=== PATIENT | female | born 1930 | race Caucasian/White ===

== ENCOUNTER 2016-08-31 09:44 | Emergency (ER) | payer MEDICARE ==
[~2016-08-31] VITALS: Ht 160 cm; Wt 63.5 kg
[2016-08-31] MEDS ORDERED: ASPI81CH PO (10:07)
[2016-08-31] MEDS ORDERED: LISI-542 PO (10:07)
[2016-08-31] MEDS ORDERED: ATOR40TA PO (10:07)
[2016-08-31] MEDS ORDERED: LEVO150T7 PO (10:07)
[2016-08-31] MEDS ORDERED: LASI20TA PO (10:07)
[2016-08-31] MEDS ORDERED: BYST5TAB2 PO (10:07)
[2016-08-31 11:06] LABS: BASO % 0.6 % (0.0-1.0); EOS # 0.2 K/mm3 (0.0-0.50); EOS % 4.5 % (0.0-3.0); LARGE UNSTAINED CELL # 0.1 K/mm3 (0.0-0.4); LARGE UNSTAINED CELL % 1.6 % (0.0-4.0); LYMPH # 1.1 K/mm3 (1.5-4.5); LYMPH % 18.4 % (24.0-44.0); MEAN CORPUSCULAR HEMOGLOBIN 29.8 pg (27.0-33.0); MEAN CORPUSCULAR HGB CONC 33.1 g/dl (32.0-36.5); MEAN CORPUSCULAR VOLUME 89.9 fl (80.0-96.0); MONO # 0.4 K/mm3 (0.0-0.8); MONO % 7.4 % (0.0-5.0); NEUTROPHILS # 3.8 K/mm3 (1.8-7.7); NEUTROPHILS % 67.5 % (36.0-66.0); PLATELET COUNT, AUTOMATED 178 k/mm3 (150-450); RED CELL DISTRIBUTION WIDTH 13.2 % (11.5-14.5); WHITE BLOOD COUNT 5.6 K/mm3 (4.0-10.0)
--- NOTE | 2016-08-31 11:34 | REP ---
PELVIS AND BILATERAL HIPS: AP view of the pelvis and AP and frogleg views of each hip are performed. 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 The visualized osseous structures demonstrate no evidence of acute fracture. There are degenerative changes of the lower lumbar spine and sacroiliac joints. Multiple metallic clips and sutures are seen in the pelvis as well as phleboliths. IMPRESSION: No acute fracture or dislocation. Signed by Dayne Amaral MD 08/31/2016 07:46 P
--- NOTE | 2016-08-31 11:36 | REP ---
BILATERAL KNEES: Five views bilateral knees performed. There is no acute fracture or dislocation. Total knee arthroplasty is seen on the right with no abnormal lucency in the adjacent bone. There is moderate diffuse joint space narrowing of the left knee joint with spurring and subchondral sclerosis as well as chondrocalcinosis. Large spurs are seen of the anterior superior aspect of the femoral condyles and of the inferior patella. There are vascular calcifications posteriorly. IMPRESSION: Right total knee arthroplasty. Diffuse degenerative changes left knee. No acute fracture or dislocation. Signed by Dayne Amaral MD 08/31/2016 07:46 P
[2016-08-31] MEDS ORDERED: ACETAMINOPHEN TAB 650MG DOSE (2X325MG) PO ONE (12:00)
[2016-08-31 12:20] VITALS: BP 115/68
[2016-08-31] MEDS ORDERED: TYLE325T5 PO (12:30)
== END 2016-08-31 12:41 | disposition home or self-care (01) ==
LOC: M ED 10:34
DX: M25.551 Pain in right hip (principal); M17.11 Unilateral primary osteoarthritis, right knee; Z87.891 Personal history of nicotine dependence; Z88.5 Allergy status to narcotic agent; Z91.040 Latex allergy status; Z79.899 Other long term (current) drug therapy; Z96.9 Presence of functional implant, unspecified

== ENCOUNTER 2017-05-20 14:00 | Emergency (ER) | payer MEDICARE ==
[2017-05-20] MEDS ORDERED: ALTEPLASE 100MG INJ (J2997) IV ×2 (14:30→14:45)
[2017-05-20 14:44] LABS: BEDSIDE GLUCOSE 90 MG/DL (83-110)
[2017-05-20 14:45] LABS: BASO % 0.6 % (0.0-1.0); EOS # 0.1 10^3/uL (0.0-0.50); EOS % 1.8 % (0.0-3.0); HEMATOCRIT 42.7 % (36.0-47.0); IMMATURE GRANULOCYTE % 0.2 % (0-0); LYMPH # 0.9 10^3/uL (1.5-4.5); LYMPH % 17.2 % (24.0-44.0); MEAN CORPUSCULAR HEMOGLOBIN 29.9 pg (27.0-33.0); MEAN CORPUSCULAR HGB CONC 32.8 g/dl (32.0-36.5); MONO # 0.4 10^3/uL (0.0-0.8); MONO % 6.8 % (0.0-5.0); NEUTROPHILS % 73.4 % (36.0-66.0); PLATELET COUNT, AUTOMATED 186 10^3/uL (150-450); RED BLOOD COUNT 4.69 10^6/uL (4.00-5.40); RED CELL DISTRIBUTION WIDTH 13.4 % (11.5-14.5); WHITE BLOOD COUNT 5.4 10^3/uL (4.0-10.0)
[2017-05-20 14:53] LABS: INR 1.02; PROTHROMBIN TIME 13.5 SECONDS (12.4-14.5)
[2017-05-20 14:54] LABS: PARTIAL THROMBOPLASTIN TIME 30.2 SECONDS (26.8-37.9)
[2017-05-20 14:57] LABS: ANION GAP 4 MEQ/L (8-16); BLOOD UREA NITROGEN 18 MG/DL (7-18); CALCIUM LEVEL 8.8 MG/DL (8.8-10.2); CARBON DIOXIDE LEVEL 33 MEQ/L (21-32); CHLORIDE LEVEL 106 MEQ/L (98-107); CK-MB VALUE MASS 1.7 NG/ML (0.0-3.6); CPK CREATINE PHOSPHOKINASE 75 U/L (26-192); CREATININE FOR GFR 0.81 MG/DL (0.55-1.30); GLOMERULAR FILTRATION RATE > 60.0 (>32); GLUCOSE, FASTING 92 MG/DL (70-100); MB/CK RELATIVE INDEX 2.26 (< OR =4); POTASSIUM SERUM 3.7 MEQ/L (3.5-5.1); SODIUM LEVEL 143 MEQ/L (136-145); TROPONIN I < 0.02 NG/ML (< 0.10)
== END 2017-05-20 15:00 | disposition short-term general hospital (02) ==
LOC: M ED 14:00
DX: I63.9 Cerebral infarction, unspecified (principal); R00.1 Bradycardia, unspecified; I51.9 Heart disease, unspecified; I10 Essential (primary) hypertension; E03.9 Hypothyroidism, unspecified; Z86.73 Personal history of transient ischemic attack (TIA), and cerebral infarction without residual deficits; Z85.038 Personal history of other malignant neoplasm of large intestine; Z86.79 Personal history of other diseases of the circulatory system; Z87.891 Personal history of nicotine dependence; Z79.82 Long term (current) use of aspirin; Z79.899 Other long term (current) drug therapy; Z88.5 Allergy status to narcotic agent; Z91.89 Other specified personal risk factors, not elsewhere classified
CPT/HCPCS: 71045

== ENCOUNTER 2017-05-23 18:04 | Inpatient (IN) | payer MEDICARE ==
[2017-05-23] MEDS: FUROSEMIDE 20 MG TAB PO (17:00)
[~2017-05-23 18:04] MED LIST: BISACODYL 5 MG TAB PO; FLEET ENEMA PR
[2017-05-23] MEDS: ATORVASTATIN 20 MG TAB PO (20:45)
[2017-05-23 23:43] LABS: APPEARANCE, URINE HAZY (CLEAR); BACTERIA, URINE AUTO NEGATIVE (NEGATIVE); BILIRUBIN, URINE AUTO NEGATIVE (NEGATIVE); BLOOD, URINE BLOOD 3+ (NEGATIVE); COLOR, URINE YELLOW (YELLOW); GLUCOSE, URINE (UA) AUTO NEGATIVE (NEGATIVE); KETONE, URINE AUTO NEGATIVE (NEGATIVE); LEUKOCYTE ESTERASE, URINE AUTO 3+ (NEGATIVE); NITRITE, URINE AUTO NEGATIVE (NEGATIVE); PROTEIN, URINE AUTO NEGATIVE (NEGATIVE); RBC, URINE AUTO TNTC /HPF (0-3); SPECIFIC GRAVITY URINE AUTO 1.016 (1.002-1.035); SQUAMOUS EPITHELIAL CELL UR AU 0 /HPF (0-6); WBC, URINE AUTO 21 /HPF (0-3)
[2017-05-24] MEDS: LEVOTHYROXINE 125MCG TABLET (0.125MG) PO (06:35)
[2017-05-24] MEDS: ACETAMINOPHEN TAB 650MG DOSE (2X325MG) PO (06:36)
[2017-05-24 06:59] LABS: BASO % 0.5 % (0.0-1.0); EOS # 0.2 10^3/uL (0.0-0.50); EOS % 2.6 % (0.0-3.0); HEMATOCRIT 38.4 % (36.0-47.0); IMMATURE GRANULOCYTE % 0.2 % (0-0); LYMPH # 1.2 10^3/uL (1.5-4.5); LYMPH % 20.2 % (24.0-44.0); MEAN CORPUSCULAR HEMOGLOBIN 30.4 pg (27.0-33.0); MEAN CORPUSCULAR HGB CONC 33.9 g/dl (32.0-36.5); MEAN CORPUSCULAR VOLUME 89.7 fl (80.0-96.0); MONO # 0.6 10^3/uL (0.0-0.8); MONO % 9.8 % (0.0-5.0); NEUTROPHILS # 4.1 10^3/uL (1.8-7.7); NEUTROPHILS % 66.7 % (36.0-66.0); PLATELET COUNT, AUTOMATED 147 10^3/uL (150-450); RED BLOOD COUNT 4.28 10^6/uL (4.00-5.40); RED CELL DISTRIBUTION WIDTH 13.1 % (11.5-14.5); WHITE BLOOD COUNT 6.1 10^3/uL (4.0-10.0)
[2017-05-24 07:29] LABS: ALBUMIN 3.1 GM/DL (3.2-5.2); ALBUMIN/GLOBULIN RATIO 0.91 (1.00-1.93); ALKALINE PHOSPHATASE 70 U/L (45-117); ALT/SGPT 32 U/L (12-78); ANION GAP 6 MEQ/L (8-16); AST/SGOT 31 U/L (7-37); BILIRUBIN,TOTAL 1.6 MG/DL (0.2-1.0); BLOOD UREA NITROGEN 17 MG/DL (7-18); CALCIUM LEVEL 8.3 MG/DL (8.8-10.2); CARBON DIOXIDE LEVEL 32 MEQ/L (21-32); CHLORIDE LEVEL 101 MEQ/L (98-107); CREATININE FOR GFR 0.75 MG/DL (0.55-1.30); FREE THYROXINE INDEX 3.6 % (1.3-4.8); GLOMERULAR FILTRATION RATE > 60.0 (>32); GLUCOSE, FASTING 93 MG/DL (70-100); POTASSIUM SERUM 3.4 MEQ/L (3.5-5.1); SODIUM LEVEL 139 MEQ/L (136-145); T UPTAKE 34 % (30-39); THYROXINE (T4) 10.6 UG/DL (4.5-12.0); TOTAL PROTEIN 6.5 GM/DL (6.4-8.2)
[2017-05-24] MEDS: ASPIRIN 81 MG CHEW TABLET PO (09:32)
[2017-05-24] MEDS: FUROSEMIDE 20 MG TAB PO ×2 (09:32→18:34)
[2017-05-24] MEDS: NEBIVOLOL 5 MG TAB (BYSTOLIC) PO (09:33)
[2017-05-24] MEDS: CYANOCOBALAMIN 500 MCG TAB PO (09:33)
[2017-05-24] MEDS: LISINOPRIL 5 MG TAB PO (09:33)
[2017-05-24] MEDS: PANTOPRAZOLE 40MG TAB (PROTONIX) PO (09:33)
[2017-05-24] MEDS: POTASSIUM CHLORIDE 10 MEQ SR TABLET PO (13:51)
[2017-05-24] MEDS: ATORVASTATIN 20 MG TAB PO (20:45)
[2017-05-25] MEDS: ACETAMINOPHEN TAB 650MG DOSE (2X325MG) PO ×2 (06:14→21:55)
[2017-05-25] MEDS: LEVOTHYROXINE 125MCG TABLET (0.125MG) PO (06:14)
[2017-05-25 07:32] LABS: ANION GAP 6 MEQ/L (8-16); BLOOD UREA NITROGEN 25 MG/DL (7-18); CALCIUM LEVEL 8.1 MG/DL (8.8-10.2); CARBON DIOXIDE LEVEL 31 MEQ/L (21-32); CHLORIDE LEVEL 104 MEQ/L (98-107); CREATININE FOR GFR 0.86 MG/DL (0.55-1.30); GLOMERULAR FILTRATION RATE > 60.0 (>32); GLUCOSE, FASTING 107 MG/DL (70-100); POTASSIUM SERUM 3.6 MEQ/L (3.5-5.1); SODIUM LEVEL 141 MEQ/L (136-145)
[2017-05-25] MEDS: NEBIVOLOL 5 MG TAB (BYSTOLIC) PO (08:30)
[2017-05-25] MEDS: LISINOPRIL 5 MG TAB PO (08:30)
[2017-05-25] MEDS: CYANOCOBALAMIN 500 MCG TAB PO (08:30)
[2017-05-25] MEDS: FUROSEMIDE 20 MG TAB PO ×2 (08:30→17:25)
[2017-05-25] MEDS: PANTOPRAZOLE 40MG TAB (PROTONIX) PO (08:30)
[2017-05-25] MEDS: ASPIRIN 81 MG CHEW TABLET PO (08:30)
[2017-05-25] MEDS: ATORVASTATIN 20 MG TAB PO (21:55)
[2017-05-26] MEDS: LEVOTHYROXINE 125MCG TABLET (0.125MG) PO (07:02)
[2017-05-26] MEDS: FUROSEMIDE 20 MG TAB PO ×2 (08:31→17:14)
[2017-05-26] MEDS: CYANOCOBALAMIN 500 MCG TAB PO (08:31)
[2017-05-26] MEDS: PANTOPRAZOLE 40MG TAB (PROTONIX) PO (08:31)
[2017-05-26] MEDS: NEBIVOLOL 5 MG TAB (BYSTOLIC) PO (08:31)
[2017-05-26] MEDS: LISINOPRIL 5 MG TAB PO (08:31)
[2017-05-26] MEDS: ASPIRIN 81 MG CHEW TABLET PO (08:31)
[2017-05-26 08:52] LABS: HEMATOCRIT 41.9 % (36.0-47.0); HEMOGLOBIN 13.7 g/dl (12.0-16.0); MEAN CORPUSCULAR HEMOGLOBIN 29.8 pg (27.0-33.0); MEAN CORPUSCULAR HGB CONC 32.7 g/dl (32.0-36.5); MEAN CORPUSCULAR VOLUME 91.3 fl (80.0-96.0); PLATELET COUNT, AUTOMATED 207 10^3/uL (150-450); RED BLOOD COUNT 4.59 10^6/uL (4.00-5.40); RED CELL DISTRIBUTION WIDTH 13.2 % (11.5-14.5); WHITE BLOOD COUNT 5.7 10^3/uL (4.0-10.0)
[2017-05-26 09:37] LABS: ANION GAP 5 MEQ/L (8-16); BLOOD UREA NITROGEN 24 MG/DL (7-18); CALCIUM LEVEL 8.8 MG/DL (8.8-10.2); CARBON DIOXIDE LEVEL 33 MEQ/L (21-32); CHLORIDE LEVEL 104 MEQ/L (98-107); CREATININE FOR GFR 0.95 MG/DL (0.55-1.30); GLOMERULAR FILTRATION RATE 59.2 (>32); GLUCOSE, FASTING 95 MG/DL (70-100); POTASSIUM SERUM 3.7 MEQ/L (3.5-5.1); SODIUM LEVEL 142 MEQ/L (136-145)
[2017-05-26] MEDS: ATORVASTATIN 20 MG TAB PO (20:25)
[2017-05-27] MEDS: LEVOTHYROXINE 125MCG TABLET (0.125MG) PO (05:26)
[2017-05-27] MEDS: FUROSEMIDE 20 MG TAB PO ×2 (08:09→16:50)
[2017-05-27] MEDS: NEBIVOLOL 5 MG TAB (BYSTOLIC) PO (08:09)
[2017-05-27] MEDS: LISINOPRIL 5 MG TAB PO (08:09)
[2017-05-27] MEDS: ASPIRIN 81 MG CHEW TABLET PO (08:09)
[2017-05-27] MEDS: PANTOPRAZOLE 40MG TAB (PROTONIX) PO (08:10)
[2017-05-27] MEDS: CYANOCOBALAMIN 500 MCG TAB PO (08:10)
[2017-05-27] MEDS: ACETAMINOPHEN TAB 650MG DOSE (2X325MG) PO ×2 (12:47→19:40)
[2017-05-27] MEDS: ANALGESIC BALM CRM 120 GM TOP ×3 (13:00→19:41)
[2017-05-27] MEDS: ATORVASTATIN 20 MG TAB PO (19:40)
[2017-05-28] MEDS: LEVOTHYROXINE 125MCG TABLET (0.125MG) PO (05:43)
[2017-05-28] MEDS: ASPIRIN 81 MG CHEW TABLET PO (09:09)
[2017-05-28] MEDS: CYANOCOBALAMIN 500 MCG TAB PO (09:10)
[2017-05-28] MEDS: FUROSEMIDE 20 MG TAB PO ×2 (09:10→16:37)
[2017-05-28] MEDS: PANTOPRAZOLE 40MG TAB (PROTONIX) PO (09:10)
[2017-05-28] MEDS: LISINOPRIL 5 MG TAB PO (09:10)
[2017-05-28] MEDS: NEBIVOLOL 5 MG TAB (BYSTOLIC) PO (09:10)
[2017-05-28] MEDS: ANALGESIC BALM CRM 120 GM TOP ×4 (09:10→20:03)
[2017-05-28] MEDS: ATORVASTATIN 20 MG TAB PO (20:03)
[2017-05-28] MEDS: ACETAMINOPHEN TAB 650MG DOSE (2X325MG) PO (20:04)
[2017-05-29] MEDS: LEVOTHYROXINE 125MCG TABLET (0.125MG) PO (05:36)
[2017-05-29] MEDS: ASPIRIN 81 MG CHEW TABLET PO (08:47)
[2017-05-29] MEDS: FUROSEMIDE 20 MG TAB PO ×2 (08:47→17:05)
[2017-05-29] MEDS: PANTOPRAZOLE 40MG TAB (PROTONIX) PO (08:47)
[2017-05-29] MEDS: LISINOPRIL 5 MG TAB PO (08:48)
[2017-05-29] MEDS: ANALGESIC BALM CRM 120 GM TOP ×4 (08:48→20:55)
[2017-05-29] MEDS: CYANOCOBALAMIN 500 MCG TAB PO (08:48)
[2017-05-29] MEDS: NEBIVOLOL 5 MG TAB (BYSTOLIC) PO (08:48)
[2017-05-29] MEDS: ACETAMINOPHEN TAB 650MG DOSE (2X325MG) PO (10:47)
[2017-05-29] MEDS: ATORVASTATIN 20 MG TAB PO (20:55)
[2017-05-30] MEDS: LEVOTHYROXINE 125MCG TABLET (0.125MG) PO (05:59)
[2017-05-30] MEDS: PANTOPRAZOLE 40MG TAB (PROTONIX) PO (08:48)
[2017-05-30] MEDS: LISINOPRIL 5 MG TAB PO (08:48)
[2017-05-30] MEDS: NEBIVOLOL 5 MG TAB (BYSTOLIC) PO (08:48)
[2017-05-30] MEDS: CYANOCOBALAMIN 500 MCG TAB PO (08:48)
[2017-05-30] MEDS: FUROSEMIDE 20 MG TAB PO (08:48)
[2017-05-30] MEDS: ASPIRIN 81 MG CHEW TABLET PO (08:48)
[2017-05-30] MEDS: ANALGESIC BALM CRM 120 GM TOP (08:49)
== END 2017-05-30 10:45 | DRG 57 ==
LOC: M PM&R 18:04
DX: I69.354 Hemiplegia and hemiparesis following cerebral infarction affecting left non-dominant side (principal); I50.32 Chronic diastolic (congestive) heart failure; I69.393 Ataxia following cerebral infarction; I11.0 Hypertensive heart disease with heart failure; E78.5 Hyperlipidemia, unspecified; I69.398 Other sequelae of cerebral infarction; R29.818 Other symptoms and signs involving the nervous system; E03.9 Hypothyroidism, unspecified; I25.10 Atherosclerotic heart disease of native coronary artery without angina pectoris; F03.90 Unspecified dementia, unspecified severity, without behavioral disturbance, psychotic disturbance, mood disturbance, and anxiety; Z91.048 Other nonmedicinal substance allergy status; Z88.5 Allergy status to narcotic agent; Z79.82 Long term (current) use of aspirin; Z79.899 Other long term (current) drug therapy; Z97.3 Presence of spectacles and contact lenses; Z85.038 Personal history of other malignant neoplasm of large intestine; Z86.79 Personal history of other diseases of the circulatory system; Z87.891 Personal history of nicotine dependence; Z96.643 Presence of artificial hip joint, bilateral

== ENCOUNTER → 2017-06-02 | Outpatient (REF) ==
[2017-06-02 14:40] LABS: INFLUENZA A AMPLIFICATION POSITIVE (NEGATIVE); INFLUENZA B AMPLIFICATION NEGATIVE (NEGATIVE)
== END ==
DX: R05 Cough (principal); R50.9 Fever, unspecified

== ENCOUNTER → 2017-06-03 | Outpatient (REF) ==
[2017-06-03 11:22] LABS: HEMATOCRIT 42.4 % (36.0-47.0); HEMOGLOBIN 13.6 g/dl (12.0-16.0); MEAN CORPUSCULAR HEMOGLOBIN 29.6 pg (27.0-33.0); MEAN CORPUSCULAR HGB CONC 32.1 g/dl (32.0-36.5); MEAN CORPUSCULAR VOLUME 92.4 fl (80.0-96.0); PLATELET COUNT, AUTOMATED 209 10^3/uL (150-450); RED BLOOD COUNT 4.59 10^6/uL (4.00-5.40); RED CELL DISTRIBUTION WIDTH 13.4 % (11.5-14.5); WHITE BLOOD COUNT 3.9 10^3/uL (4.0-10.0)
[2017-06-03 11:54] LABS: ANION GAP 12 MEQ/L (8-16); BLOOD UREA NITROGEN 28 MG/DL (7-18); CALCIUM LEVEL 8.8 MG/DL (8.8-10.2); CARBON DIOXIDE LEVEL 33 MEQ/L (21-32); CHLORIDE LEVEL 95 MEQ/L (98-107); CREATININE FOR GFR 1.21 MG/DL (0.55-1.30); GLOMERULAR FILTRATION RATE 44.8 (>32); GLUCOSE, FASTING 155 MG/DL (70-100); POTASSIUM SERUM 3.4 MEQ/L (3.5-5.1); SODIUM LEVEL 140 MEQ/L (136-145)
== END ==
DX: E03.9 Hypothyroidism, unspecified (principal)

== ENCOUNTER → 2017-06-24 | Outpatient (REF) | payer MEDICARE ==
[2017-06-24 11:12] LABS: THYROID STIMULATING HORMONE 0.044 uIU/ML (0.358-3.740)
== END ==
DX: E03.9 Hypothyroidism, unspecified (principal)
CPT/HCPCS: 84443

== ENCOUNTER → 2017-07-02 | Outpatient (REF) | payer MEDICARE ==
[2017-07-02 12:20] LABS: HEMATOCRIT 37.7 % (36.0-47.0); HEMOGLOBIN 12.3 g/dl (12.0-16.0); MEAN CORPUSCULAR HEMOGLOBIN 29.9 pg (27.0-33.0); MEAN CORPUSCULAR HGB CONC 32.6 g/dl (32.0-36.5); MEAN CORPUSCULAR VOLUME 91.7 fl (80.0-96.0); PLATELET COUNT, AUTOMATED 150 10^3/uL (150-450); RED BLOOD COUNT 4.11 10^6/uL (4.00-5.40); RED CELL DISTRIBUTION WIDTH 13.2 % (11.5-14.5); WHITE BLOOD COUNT 4.9 10^3/uL (4.0-10.0)
[2017-07-02 12:47] LABS: ANION GAP 6 MEQ/L (8-16); BLOOD UREA NITROGEN 37 MG/DL (7-18); CALCIUM LEVEL 9.1 MG/DL (8.8-10.2); CARBON DIOXIDE LEVEL 33 MEQ/L (21-32); CHLORIDE LEVEL 104 MEQ/L (98-107); CREATININE FOR GFR 0.95 MG/DL (0.55-1.30); GLOMERULAR FILTRATION RATE 59.2 (>32); GLUCOSE, FASTING 104 MG/DL (70-100); POTASSIUM SERUM 4.3 MEQ/L (3.5-5.1); SODIUM LEVEL 143 MEQ/L (136-145)
== END ==
DX: E03.9 Hypothyroidism, unspecified (principal); I63.9 Cerebral infarction, unspecified
CPT/HCPCS: 80048

== ENCOUNTER → 2017-07-22 | Outpatient (REF) | payer MEDICARE ==
[2017-07-22 10:39] LABS: THYROID STIMULATING HORMONE 0.154 uIU/ML (0.358-3.740)
== END ==
DX: E03.9 Hypothyroidism, unspecified (principal)
CPT/HCPCS: 84443

== ENCOUNTER → 2017-08-08 | Outpatient (REF) | payer MEDICARE ==
[2017-08-08 11:29] LABS: THYROID STIMULATING HORMONE 0.528 uIU/ML (0.358-3.740)
== END ==
DX: E03.9 Hypothyroidism, unspecified (principal)
CPT/HCPCS: 84443

== ENCOUNTER → 2017-08-26 | Outpatient (REF) | payer MEDICARE ==
[2017-08-26 10:02] LABS: VALPROIC ACID (DEPAKOTE) 40.3 UG/ML (50.0-100.0)
== END ==
DX: E03.9 Hypothyroidism, unspecified (principal)
CPT/HCPCS: 84443

== ENCOUNTER → 2017-09-30 | Outpatient (REF) | DX: E03.9 Hypothyroidism, unspecified (principal) ==

== ENCOUNTER → 2017-10-28 | Outpatient (REF) | payer MEDICARE | DX: Z51.81 Encounter for therapeutic drug level monitoring (principal); Z79.899 Other long term (current) drug therapy ==

== ENCOUNTER → 2017-12-24 | Outpatient (REF) ==
[2017-12-24 12:45] LABS: HEMATOCRIT 36.2 % (36.0-47.0); HEMOGLOBIN 11.8 g/dl (12.0-15.5); MEAN CORPUSCULAR HEMOGLOBIN 31.4 pg (27.0-33.0); MEAN CORPUSCULAR HGB CONC 32.6 g/dl (32.0-36.5); MEAN CORPUSCULAR VOLUME 96.3 fl (80.0-96.0); PLATELET COUNT, AUTOMATED 147 10^3/uL (150-450); RED BLOOD COUNT 3.76 10^6/uL (4.00-5.40); WHITE BLOOD COUNT 4.2 10^3/uL (4.0-10.0)
[2017-12-24 13:27] LABS: ANION GAP 12 MEQ/L (8-16); BLOOD UREA NITROGEN 29 MG/DL (7-18); CALCIUM LEVEL 8.5 MG/DL (8.8-10.2); CARBON DIOXIDE LEVEL 27 MEQ/L (21-32); CHLORIDE LEVEL 105 MEQ/L (98-107); CREATININE FOR GFR 0.91 MG/DL (0.55-1.30); GLOMERULAR FILTRATION RATE > 60.0 (>32); GLUCOSE, FASTING 200 MG/DL (70-100); POTASSIUM SERUM 3.5 MEQ/L (3.5-5.1); SODIUM LEVEL 144 MEQ/L (136-145)
== END ==
DX: R41.82 Altered mental status, unspecified (principal)

== ENCOUNTER → 2018-04-28 | Outpatient (REF) | payer MEDICARE ==
[~2018-04-28] MED LIST changes: +ASPI81CH PO; +ATOR40TA75 PO; -BISACODYL 5 MG TAB PO; +BYST5TAB2 PO; -FLEET ENEMA PR; +LASI20TA3 PO; +LEVO125T41 PO; +LEVO150T7 PO; +LISI-542 PO; +TYLE325T5 PO; +VITA10002 PO
== END ==
PROVIDERS: ATTEND Internal Medicine
DX: I63.9 Cerebral infarction, unspecified (principal); Z51.81 Encounter for therapeutic drug level monitoring

== ENCOUNTER → 2018-05-04 | Outpatient (REF) ==
--- NOTE | 2018-05-04 17:12 | REP ---
PORTABLE AP LATERAL KNEE, TWO VIEWS: HISTORY: Knee pain. There is no acute fracture or dislocation. There is marked narrowing of the knee joint spaces. There is irregularity in the distal femur and proximal tibia. Osteophytes are present on the femur, tibia and patella. Calcifications are present medial and lateral to the joint space. This represents ligamentous or tendon calcification. The bony structure is osteopenic. IMPRESSION:Degenerative change as described above. Electronically Signed by Gordy Rios MD 05/04/2018 05:13 P
== END ==
PROVIDERS: ATTEND Internal Medicine
DX: M25.562 Pain in left knee (principal)

== ENCOUNTER → 2018-06-30 | Outpatient (REF) | payer MEDICARE ==
[2018-06-30 10:36] LABS: HEMOGLOBIN 13.3 g/dl (12.0-15.5); MEAN CORPUSCULAR HEMOGLOBIN 31.1 pg (27.0-33.0); MEAN CORPUSCULAR HGB CONC 32.4 g/dl (32.0-36.5); MEAN CORPUSCULAR VOLUME 95.8 fl (80.0-96.0); PLATELET COUNT, AUTOMATED 150 10^3/uL (150-450); RED BLOOD COUNT 4.28 10^6/uL (4.00-5.40); WHITE BLOOD COUNT 4.3 10^3/uL (4.0-10.0)
[2018-06-30 10:47] LABS: BLOOD UREA NITROGEN 24 MG/DL (7-18); CALCIUM LEVEL 8.8 MG/DL (8.8-10.2); CARBON DIOXIDE LEVEL 33 MEQ/L (21-32); CHLORIDE LEVEL 105 MEQ/L (98-107); CREATININE FOR GFR 0.73 MG/DL (0.55-1.30); GLOMERULAR FILTRATION RATE > 60.0 (>32); GLUCOSE, FASTING 98 MG/DL (70-100); POTASSIUM SERUM 4.3 MEQ/L (3.5-5.1); SODIUM LEVEL 143 MEQ/L (136-145)
== END ==
PROVIDERS: ATTEND Internal Medicine
DX: I63.9 Cerebral infarction, unspecified (principal)

== ENCOUNTER → 2018-09-22 | Outpatient (REF) | payer MEDICARE ==
[~2018-09-22] MED LIST changes: -ASPI81CH PO; +ASPI81CH49 PO
[2018-09-22 09:25] LABS: HEMATOCRIT 40.4 % (36.0-47.0); MEAN CORPUSCULAR HEMOGLOBIN 30.4 pg (27.0-33.0); MEAN CORPUSCULAR HGB CONC 32.2 g/dl (32.0-36.5); MEAN CORPUSCULAR VOLUME 94.6 fl (80.0-96.0); PLATELET COUNT, AUTOMATED 151 10^3/uL (150-450); RED BLOOD COUNT 4.27 10^6/uL (4.00-5.40); WHITE BLOOD COUNT 5.2 10^3/uL (4.0-10.0)
[2018-09-22 10:20] LABS: BLOOD UREA NITROGEN 32 MG/DL (7-18); CALCIUM LEVEL 8.5 MG/DL (8.8-10.2); CARBON DIOXIDE LEVEL 30 MEQ/L (21-32); CHLORIDE LEVEL 106 MEQ/L (98-107); CREATININE FOR GFR 0.85 MG/DL (0.55-1.30); GLOMERULAR FILTRATION RATE > 60.0 (>32); GLUCOSE, FASTING 82 MG/DL (70-100); POTASSIUM SERUM 4.5 MEQ/L (3.5-5.1); SODIUM LEVEL 145 MEQ/L (136-145)
== END ==
PROVIDERS: ATTEND Internal Medicine
DX: I10 Essential (primary) hypertension (principal)

== ENCOUNTER → 2018-10-27 | Outpatient (REF) | payer MEDICARE | PROVIDERS: ATTEND Internal Medicine | DX: Z79.899 Other long term (current) drug therapy (principal) ==

== ENCOUNTER → 2018-12-29 | Outpatient (REF) | payer MEDICARE ==
[~2018-12-29] MED LIST changes: +CYAN100049 PO; -VITA10002 PO
[2018-12-29 10:16] LABS: HEMATOCRIT 39.5 % (36.0-47.0); HEMOGLOBIN 12.9 g/dl (12.0-15.5); MEAN CORPUSCULAR HEMOGLOBIN 31.7 pg (27.0-33.0); MEAN CORPUSCULAR HGB CONC 32.7 g/dl (32.0-36.5); MEAN CORPUSCULAR VOLUME 97.1 fl (80.0-96.0); PLATELET COUNT, AUTOMATED 139 10^3/uL (150-450); RED BLOOD COUNT 4.07 10^6/uL (4.00-5.40); WHITE BLOOD COUNT 6.1 10^3/uL (4.0-10.0)
[2018-12-29 10:36] LABS: BLOOD UREA NITROGEN 24 MG/DL (7-18); CALCIUM LEVEL 8.6 MG/DL (8.8-10.2); CARBON DIOXIDE LEVEL 31 MEQ/L (21-32); CHLORIDE LEVEL 105 MEQ/L (98-107); CREATININE FOR GFR 0.92 MG/DL (0.55-1.30); GLOMERULAR FILTRATION RATE > 60.0 (>32); GLUCOSE, FASTING 82 MG/DL (70-100); POTASSIUM SERUM 4.3 MEQ/L (3.5-5.1); SODIUM LEVEL 143 MEQ/L (136-145)
== END ==
PROVIDERS: ATTEND Internal Medicine
DX: I67.9 Cerebrovascular disease, unspecified (principal)

== ENCOUNTER → 2019-03-16 | Outpatient (REF) | payer MEDICARE ==
[2019-03-16 12:42] LABS: HEMOGLOBIN 12.5 g/dl (12.0-15.5); MEAN CORPUSCULAR HEMOGLOBIN 31.4 pg (27.0-33.0); MEAN CORPUSCULAR HGB CONC 31.3 g/dl (32.0-36.5); MEAN CORPUSCULAR VOLUME 100.5 fl (80.0-96.0); PLATELET COUNT, AUTOMATED 151 10^3/uL (150-450); RED BLOOD COUNT 3.98 10^6/uL (4.00-5.40); WHITE BLOOD COUNT 5.5 10^3/uL (4.0-10.0)
[2019-03-16 13:06] LABS: BLOOD UREA NITROGEN 23 MG/DL (7-18); CALCIUM LEVEL 8.3 MG/DL (8.8-10.2); CARBON DIOXIDE LEVEL 32 MEQ/L (21-32); CHLORIDE LEVEL 107 MEQ/L (98-107); CREATININE FOR GFR 0.89 MG/DL (0.55-1.30); GLOMERULAR FILTRATION RATE > 60.0 (>32); GLUCOSE, FASTING 149 MG/DL (70-100); SODIUM LEVEL 143 MEQ/L (136-145)
== END ==
PROVIDERS: ATTEND Internal Medicine
DX: R19.7 Diarrhea, unspecified (principal)

== ENCOUNTER → 2019-05-03 | Outpatient (REF) | payer MEDICARE ==
--- NOTE | 2019-05-03 14:52 | REPPI ---
CHEST, SINGLE VIEW: Single view of the chest is performed and compared to prior study, 06/02/2017. There is chronic interstitial prominence, which is stable. I see no acute infiltrate. There is cardiomegaly, unchanged. There is calcification of the thoracic aorta. Mediastinal silhouette is unchanged. IMPRESSION: Cardiomegaly and chronic interstitial changes. No evidence of acute infiltrate. Electronically Signed by Dayne Amaral MD 05/03/2019 06:07 P
== END ==
PROVIDERS: ATTEND Internal Medicine
DX: R05 Cough (principal); I51.7 Cardiomegaly; I70.0 Atherosclerosis of aorta

== ENCOUNTER → 2019-05-07 | Outpatient (REF) | payer MEDICARE | PROVIDERS: ATTEND Internal Medicine | DX: Z51.81 Encounter for therapeutic drug level monitoring (principal) ==

== ENCOUNTER → 2019-06-30 | Outpatient (REF) | payer MEDICARE ==
[2019-06-30 12:50] LABS: HEMATOCRIT 40.9 % (36.0-47.0); HEMOGLOBIN 12.9 g/dl (12.0-15.5); MEAN CORPUSCULAR HEMOGLOBIN 31.3 pg (27.0-33.0); MEAN CORPUSCULAR HGB CONC 31.5 g/dl (32.0-36.5); MEAN CORPUSCULAR VOLUME 99.3 fl (80.0-96.0); PLATELET COUNT, AUTOMATED 140 10^3/uL (150-450); RED BLOOD COUNT 4.12 10^6/uL (4.00-5.40); WHITE BLOOD COUNT 5.5 10^3/uL (4.0-10.0)
[2019-06-30 13:08] LABS: BLOOD UREA NITROGEN 23 MG/DL (7-18); CALCIUM LEVEL 8.9 MG/DL (8.8-10.2); CARBON DIOXIDE LEVEL 31 MEQ/L (21-32); CHLORIDE LEVEL 106 MEQ/L (98-107); CREATININE FOR GFR 0.92 MG/DL (0.55-1.30); GLOMERULAR FILTRATION RATE > 60.0 (>32); GLUCOSE, FASTING 76 MG/DL (70-100); POTASSIUM SERUM 4.3 MEQ/L (3.5-5.1); SODIUM LEVEL 143 MEQ/L (136-145)
== END ==
PROVIDERS: ATTEND Internal Medicine
DX: I63.9 Cerebral infarction, unspecified (principal)